=== PATIENT | female | born 1985 | race Caucasian/White ===

== ENCOUNTER 2018-06-21 15:39 | Emergency (ER) | payer BC, OTHER ==
--- NOTE | 2018-06-21 18:28 | CT ---
CT BRAIN 06/21/18 HISTORY: 32-year-old who presents with history of head injury. Headache. Noncontrast enhanced CT images of the brain obtained. The brain is unremarkable. No evidence of intra cranial masses, hemorrhages, strokes or contusions seen. The ventricles are of normal size. The tesha rium is unremarkable. Moderate degree of right maxillary sinus mucosal thickening seen. IMPRESSION: Unremarkable CT brain. POS: [facility]
--- NOTE | 2018-06-21 18:31 | CT ---
CT CERVICAL SPINE 06/21/18 HISTORY: Trauma. Neck pain and tingling. Axial images are obtained with coronal and sagittal reconstructions. CT images cervical spine demonstrates cervical spine alignment to be within normal limits. No evidenc e of acute cervical spine fractures, subluxations or bony lesions seen. IMPRESSION: Normal CT images of cervical spine. Incidentally noted is slight heterogeneity seen in the posterior aspect of the right thyroid lobe. Th is may represent a possible right thyroid lesion. Correlate with elective thyroid sonography to [facility] mika humphrey. POS: [facility]
== END 2018-06-21 17:29 | disposition home or self-care (01) ==
LOC: SCSER 15:39
DX: S16.1XXA Strain of muscle, fascia and tendon at neck level, initial encounter (principal); S00.93XA Contusion of unspecified part of head, initial encounter; W18.40XA Slipping, tripping and stumbling without falling, unspecified, initial encounter
CPT/HCPCS: 70450; 72125

== ENCOUNTER 2022-12-09 14:05 | Observation (INO) | payer OTHER ==
[2022-12-09] MEDS ORDERED: Dextrose 50% Abboject 50 ML SYRINGE SLOW IVP PRN (16:09)
[2022-12-09] MEDS ORDERED: Mag-Al 1200 mg/1200 mg/30 ML UDCUP PO PRN (16:09)
[2022-12-09] MEDS ORDERED: Ondansetron PF 4 MG/2 ML Vial IVP PRN (16:09)
[2022-12-09] MEDS ORDERED: Promethazine HCl 25 MG/ML VIAL IM PRN (16:09)
[2022-12-09] MEDS ORDERED: hydrALAZINE 20 MG/ML VIAL SLOW IVP PRN (16:09)
[2022-12-09] MEDS ORDERED: Dextrose 5% in Water 1,000 ML IV PRN (16:09)
[2022-12-09] MEDS ORDERED: Calcium Carbonate 500 MG ChewTAB PO PRN (16:09)
[2022-12-09] MEDS ORDERED: Morphine 4 MG/ML VIAL SLOW IVP PRN (16:09)
[2022-12-09] MEDS ORDERED: Ipratropium Bromide 2.5 ml Neb NEB PRN (16:34)
[2022-12-09 17:20] VITALS: BMI 33.0
[2022-12-09] MEDS: D5 1/2 NS w/20 mEq KCL 1,000 ML IV SCH (17:43)
[2022-12-09] MEDS: HYDROcodone/Acetaminophen 10/325 mg Tablet PO PRN (17:49)
[2022-12-09] MEDS: Famotidine/PF 20 mg/2ml Vial SLOW IVP SCH (20:30)
[2022-12-09] MEDS: Famotidine 20 MG TAB PO SCH (20:32)
[2022-12-09] MEDS: cefOXitin 2 GM in Sodium Chloride 0.9% 100 ML IVPB SCH (21:08)
[2022-12-10] MEDS: D5 1/2 NS w/20 mEq KCL 1,000 ML IV SCH ×3 (02:00→17:37)
[2022-12-10] MEDS: cefOXitin 2 GM in Sodium Chloride 0.9% 100 ML IVPB SCH ×2 (04:35→14:02)
[2022-12-10 07:05] LABS: #Eosinphils 0.2 thou/uL (0.0-0.7); #Lymphocytes 1.3 thou/uL (1.20-3.40); #Monocytes 0.4 thou/uL (0.11-0.59); #Neutrophils 2.4 thou/uL (1.40-6.50); %Basophils 0.7 % (0.0-1.0); %Eosinophils 4.2 % (0.0-10.0); %Lymphocytes 30.2 % (21.0-51.0); %Monocytes 8.7 % (0.0-10.0); %Neutrophils 56.2 % (42.0-75.0); Hemoglobin 12.4 g/dL (12.0-16.0); Mean Corpuscular HGB CONC 34.1 g/dL (32.0-36.0); Mean Corpuscular Hemoglobin 32.7 pg (27.0-31.0); Mean Platelet Volume 7.7 fL (7.4-10.4); Platelet Count 251 10x3/uL (130-400); RBC Distribution Width 11.6 % (11.5-14.5); White Blood Cell (WBC) Count 4.3 10x3/uL (4.8-10.8)
[2022-12-10 07:19] LABS: ALT (SGPT) 738 U/L (8-55); AST (SGOT) 417 U/L (5-34); Albumin 3.5 g/dL (3.5-5.0); Alkaline Phosphatase 127 U/L (40-110); Anion Gap 12 mmol/L (10-20); BUN (Urea Nitrogen) 8 mg/dL (7.0-18.7); Bilirubin, Total 1.3 mg/dL (0.2-1.2); Calc. Creatinine Clearance 141 mL/min (70-130); Calcium 8.2 mg/dL (7.8-10.44); Carbon Dioxide 21 mmol/L (22-29); Chloride 110 mmol/L (98-107); Estimated GFR 115; Globulin 2.5 g/dL (2.4-3.5); Glucose 105 mg/dL (70-105); Lipase 16 U/L (8-78); Potassium 3.9 mmol/L (3.5-5.1); Sodium 139 mmol/L (136-145)
[2022-12-10] MEDS: Famotidine 20 MG TAB PO SCH (07:51)
[2022-12-10] MEDS: Famotidine/PF 20 mg/2ml Vial SLOW IVP SCH (07:54)
[2022-12-10] MEDS: HYDROcodone/Acetaminophen 10/325 mg Tablet PO PRN (12:16)
[2022-12-10] MEDS ORDERED: cefOXitin 2 GM VIAL ONE ×2 (12:58→15:38)
[2022-12-10] MEDS ORDERED: Sodium Chloride 0.9% 100 ML ONE (12:58)
[2022-12-10] MEDS ORDERED: Scopolamine 1.5 mg/72 hour Patch ONE (13:43)
[2022-12-10] MEDS ORDERED: Bupivacaine/Epinephrine 0.25% 30 ML VIAL ONE (15:00)
[2022-12-10] MEDS ORDERED: Fentanyl 250 MCG/5 ML VIAL ONE (15:03)
[2022-12-10] MEDS ORDERED: Ondansetron PF 4 MG/2 ML Vial ONE (15:27)
[2022-12-10] MEDS ORDERED: Dexamethasone 20 MG/5 ML VIAL ONE (15:27)
[2022-12-10] MEDS ORDERED: PROPOFOL 200 MG/20 ML VIAL ONE (15:27)
[2022-12-10] MEDS ORDERED: Lidocaine 1% PF 5 ML VIAL ONE (15:27)
[2022-12-10] MEDS ORDERED: Ketorolac Tromethamine 30 MG/ML VIAL ONE (15:27)
[2022-12-10] MEDS ORDERED: NEOSTIGMINE 3 MG/3 ML SYR 3 MG/3 ML SYRINGE ONE (15:27)
[2022-12-10] MEDS ORDERED: Rocuronium Bromide 10 MG/ML (10ML VIAL) ONE (15:27)
[2022-12-10] MEDS ORDERED: GLYCOPYRROLATE/PF 0.2 MG/ML VIAL ONE (15:27)
[2022-12-10] MEDS ORDERED: Iopamidol 15 ML ONE (15:43)
[2022-12-10] MEDS ORDERED: fentaNYL 50 mcg/mL 1 mL Vial ONE (16:53)
[2022-12-10 17:17] VITALS: BP 142/75; TEMP 97
== END 2022-12-10 18:18 | disposition home or self-care (01) ==
LOC: SURG A 14:49 → T4-B 17:11
PROVIDERS: ADMIT Surgery; ATTEND Surgery
PROC: 0FT44ZZ Resection of Gallbladder, Percutaneous Endoscopic Approach (ICD-10-PCS; principal; 2022-12-10)
PROC: BF101ZZ Fluoroscopy of Bile Ducts using Low Osmolar Contrast (ICD-10-PCS; 2022-12-10)
DX: K80.12 Calculus of gallbladder with acute and chronic cholecystitis without obstruction (principal); Z98.51 Tubal ligation status
CPT/HCPCS: 36415; 47532; 80053; 83690; 85025; 88304; 96374; 96375; 96376; C1889; C1894; G0378; J0694; J1100; J1885; J2270; J2405; J2704; J3010; J3480; J3490; Q9967